=== PATIENT | male | born 1965 ===

== ENCOUNTER 2017-02-11 05:34 | Day surgery (SDC) | payer OTHER ==
[~2017-02-11] VITALS: Ht 194 cm; Wt 88.0 kg
[2017-02-11 05:56] VITALS: BP 119/85; PULSE 69; TEMP 97.3
[2017-02-11 08:25] VITALS: BP 127/83; PULSE 72
[2017-02-11 08:40] VITALS: BP 119/81; PULSE 76; TEMP 98.2
[2017-02-11] MEDS ORDERED: PERCOCET 325 MG1 TA2 PO (08:49)
[2017-02-11] MEDS ORDERED: ASPIRIN 32325 MG/TAB PO (08:49)
[2017-02-11] MEDS ORDERED: COLACE 100100 MG/CAP PO (08:50)
[2017-02-11] MEDS ORDERED: MOBIC15 MG PO (08:50)
[2017-02-11] MEDS ORDERED: ZOFRAN 4MG T4 MG/TAB PO (08:51)
[2017-02-11 08:55] VITALS: BP 120/80; PULSE 59
[2017-02-11 09:10] VITALS: BP 124/82; PULSE 66
== END 2017-02-11 10:02 | disposition home or self-care (01) ==
LOC: SDCO 05:34
DX: S83.211A Bucket-handle tear of medial meniscus, current injury, right knee, initial encounter (principal); Z82.49 Family history of ischemic heart disease and other diseases of the circulatory system
CPT/HCPCS: J0690; J1100; J1885; J2405; J2704; J3010; J7120